=== PATIENT | male | born 1980 | race African-American/Black ===

== ENCOUNTER 2020-04-06 01:10 | Emergency (ER) | payer SELFPAY ==
[~2020-04-06] VITALS: Ht 177.8 cm; Wt 88.4 kg
[2020-04-06 01:12] VITALS: BP 150/86
== END 2020-04-06 02:10 | disposition left against medical advice (07) ==
LOC: M ED 01:10
DX: Z53.21 Procedure and treatment not carried out due to patient leaving prior to being seen by health care provider (principal)